=== PATIENT | female | born 1995 | race African-American/Black ===

== ENCOUNTER → 2016-08-11 | Outpatient (CLI) | payer OTHER ==
[2016-03-06 18:19] VITALS: BP 139/72
[~2016-08-11] MED LIST: AMOX1TAB61 PO; IBUP100T PO; OMEP20TA63 PO; OXCA300T PO; QUET50TA8 PO
--- NOTE | 2016-08-11 13:12 | RAD ---
INDICATION: COUGH, RO5 COMPARISON: 08/17/2008 FINDINGS: 2 views of chest obtained. No focal airspace consolidation. Mediastinal contour is unremarkable. No gross osseous destructive lesion. IMPRESSION: No focal airspace consolidation or edema.
== END | disposition home or self-care (01) ==
LOC: RAD 11:13
PROVIDERS: ATTEND Family Medicine
DX: R05 Cough (principal)
CPT/HCPCS: 71020

== ENCOUNTER 2017-11-23 19:57 | Emergency (ER) | payer OTHER ==
[2017-11-23 20:23] LABS: URINE HCG POC HCG NEGATIVE (Negative)
[2017-11-23] MEDS: diphenhydrAMINE 50 MG/ML VIAL IVP (21:06)
[2017-11-23] MEDS: METOCLOPRAMIDE HCL 10 MG/2 ML VIAL. IV (21:07)
[2017-11-23 21:24] LABS: POC GLUCOSE 89 mg/dL (70-99)
== END 2017-11-23 22:06 | disposition home or self-care (01) ==
LOC: ER 19:57
DX: R51 Headache (principal); Z71.1 Person with feared health complaint in whom no diagnosis is made; J45.909 Unspecified asthma, uncomplicated; F90.9 Attention-deficit hyperactivity disorder, unspecified type; F31.9 Bipolar disorder, unspecified
CPT/HCPCS: 81025; 82962; 96374; 96375; 99284-25; J1200; J2765

== ENCOUNTER 2019-01-24 12:55 | Emergency (ER) | payer OTHER ==
[~2019-01-24] VITALS: Ht 154.9 cm; Wt 88.0 kg
[~2019-01-24 12:55] MED LIST changes: -OXCA300T PO; +OXCA300T19 PO; -QUET50TA8 PO; +QUET50TA9 PO
[2019-01-24 13:00] VITALS: BP 140/89
[2019-01-24] MEDS ORDERED: ORPHENADRINE CITRATE 60 MG/2 ML VIAL. IM ONE (13:45)
[2019-01-24] MEDS ORDERED: KETOROLAC 60 MG/2 ML VIAL. IM ONE (13:45)
--- NOTE | 2019-01-24 14:16 | PHYS DOC ---
Past Medical History Past Medical History: Anemia, Anxiety, Asthma, Bipolar, Depression, Other Additional Past Medical Histor: ADHD Past Surgical History: No Surgical History Alcohol Use: None Drug Use: None Adult General Chief Complaint Chief Complaint: OTHER COMPLAINTS [facility] HPI Patient is a 23 year old AA female, accompanied by her mother, with complaints of left upper arm pain without injury, and a headache behind both of her eyes. Patient states she is worried that her blood sugars too high. Patient states that she was seen by her primary care doctor month ago when she was diagnosed with prediabetes. She reports compulsively eating lots of sugar every day. Last night she ate a large piece of sugary cheesecake and now she is worried that her blood sugar is too high. She also complains of a headache behind both of her eyes, mother states that she got a new prescription and her glasses 2 weeks ago. Patient currently rates her pain a 6 out of 10 on the pain scale, there are no alleviating or exacerbating factors. ROS Patient denies any fever, cough, shortness of breath, wheezing, chest pain, diaphoresis, nausea, vomiting, diarrhea, abdominal pain, dysuria, hematuria, incontinence, or rash. Patient denies any decreased range of motion of left upper arm, she states that ROM and palpation does not reproduce the discomfort. Denies any numbness, tingling, or weakness of her extremities. All other ROS is neg unless otherwise noted in HPI. Review of Systems Review of Systems See Above Current Medications Current Medications Current Medications Medications (Trade) Dose Ordered Sig/Jean Start Time Stop Time Status Last Admin Dose Admin Ketorolac Tromethamine (Toradol Im) 30 mg 1X ONCE 01/24/19 13:45 01/24/19 13:48 DC 01/24/19 13:58 30 MG Orphenadrine Citrate (Norflex) 60 mg 1X ONCE 01/24/19 13:45 01/24/19 13:48 DC 01/24/19 14:00 60 MG Allergies Allergies Allergies Coded Allergies Type Severity Reaction Last Updated Verified No Known Drug Allergies 11/30/15 No Physical Exam Physical Exam See Above Constitutional: Well developed, well nourished, no acute distress, non-toxic appearance. [] HENT: Normocephalic, atraumatic, bilateral external ears normal, oropharynx moist, no oral exudates, nose normal. [] Eyes: PERRLA, EOMI, conjunctiva normal, no discharge. [] Neck: Normal range of motion, no tenderness, supple, no stridor. [] Cardiovascular:Heart rate regular rhythm Lungs & Thorax: Bilateral breath sounds clear to auscultation [] Skin: Warm, dry, no erythema, no rash, no bruising [] Extremities: No bony tenderness, no cyanosis, no clubbing, ROM intact, no edema. [] Neurologic: Alert and oriented X 3, normal motor function, normal sensory function, no focal deficits noted. [] Psychologic: Affect normal, judgement normal, mood normal. [] Current Patient Data Vital Signs Vital Signs Date Time Temp Pulse Resp B/P (MAP) Pulse Ox O2 Delivery O2 Flow Rate FiO2 01/24/19 13:00 98.1 80 18 140/89 (106) 99 Room Air 98.1 Lab Values Laboratory Tests Test 01/24/19 13:53 Glucose (Fingerstick) 109 mg/dL (70-99) H EKG EKG [] Radiology/Procedures Radiology/Procedures [] Course & Med Decision Making Course & Med Decision Making Pertinent Labs and Imaging studies reviewed. (See chart for details) dx: feared complaint not present, headache 23-year-old patient presented with an signs of high blood sugar, her blood sugar at bedside was 109. She also reported concerns that the pain in her left upper arm movement that she now had diabetes. Patient also expressed having a headache behind both of her eyes. She was given an IM injection of Toradol orphenadrine for relief of the headache. She was reassured that her blood sugar was not high enough to indicate she is diabetic. She was instructed to follow-up with her primary care doctor for further evaluation of prediabetes. Take Tylenol or ibuprofen as needed for pain. Return to the ER symptoms worsen. Patient verbalized an understanding of home care, medications, follow-up, and return to ED instructions and was in agreement with the plan of care. [] Dragon Disclaimer Dragon Disclaimer This electronic medical record was generated, in whole or in part, using a voice recognition dictation system. Departure Departure Impression: Primary Impression: Headache Additional Impression: Feared complaint without diagnosis Disposition: 01 HOME, SELF-CARE Condition: STABLE Referrals: CHANTALE DELAROSA APRN (PCP) Patient Instructions: Diets for Diabetes, Food Labeling, General Headache Without Cause, [id number] Additional Instructions: You may take Tylenol or ibuprofen as needed for pain. Recommend that you consume foods that have a low glycemic index and limit sugar intake as you have been told you are pre-diabetic by your doctor. Follow-up with your primary care doctor for further diabetes testing. Return to the ER if your symptoms worsen. Problem Qualifiers Primary Impression: Headache Headache type: unspecified Headache chronicity pattern: acute headache Intractability: not intractable Qualified Codes: R51 - Headache KULWINDER HERNANDEZ [employer] Jan 24, 2019 14:16
== END 2019-01-24 14:27 | disposition home or self-care (01) ==
LOC: ER 12:55
DX: R51 Headache (principal); M79.622 Pain in left upper arm; F41.9 Anxiety disorder, unspecified; J45.909 Unspecified asthma, uncomplicated; F31.9 Bipolar disorder, unspecified
CPT/HCPCS: 82962; 96372; 99284; J1885; J2360

== ENCOUNTER → 2020-03-19 | Outpatient (CLI) | payer OTHER ==
--- NOTE | 2020-03-19 15:26 | RAD ---
ABDOMEN COMPLETE History: Epigastric pain for one year Comparison: None. Findings: Multiple sonographic images of the abdomen are submitted. Abdominal aortic caliber is within normal limits up to 1.7 cm proximally. There is no abnormality of the visualized pancreas. There is segmental visualization of the inferior vena cava. Hepatic echogenicity is within normal limits. Right lobe of the liver measured 13.7 cm longitudinal. Gallbladder is present without intraluminal abnormality, wall thickening, or pericholecystic fluid. Right kidney measured 11.3 x 3.9 x 5.6 cm, no hydronephrosis. Spleen measured up to 8.4 cm. The left kidney measured 11.3 x 4.6 x 4.6 cm, no hydronephrosis. Common bile duct is within normal limits about 0.2 cm. Impression: 1. No significant abnormality is demonstrated. Electronically signed by: Duglas Robison MD (03/19/2020 3:23 PM) [id number]
== END | disposition home or self-care (01) ==
LOC: US 14:10
PROVIDERS: ATTEND Family Medicine
DX: R10.13 Epigastric pain (principal)
CPT/HCPCS: 76700

== ENCOUNTER → 2021-02-09 | Outpatient (CLI) | payer MEDICARE, OTHER ==
[~2021-02-09] MED LIST changes: -IBUP100T PO; +IBUP100T68 PO
== END ==
LOC: RT 09:11
PROVIDERS: ATTEND Nurse Practitioner Gerontology
DX: G47.33 Obstructive sleep apnea (adult) (pediatric) (principal); R40.0 Somnolence; R53.83 Other fatigue
CPT/HCPCS: G0399

== ENCOUNTER → 2021-02-10 | Outpatient (CLI) | payer MEDICARE, OTHER ==
--- NOTE | 2021-02-10 12:54 | RAD ---
EXAMINATION: CT ABDOMEN+PELVIS WO CLINICAL HISTORY: Abnormal weight loss TECHNIQUE: Imaging of the abdomen and pelvis was performed without intravenous contrast using standar d technique, scanning from just above the dome of the diaphragm to the symphysis pubis. Unenhanced i maging is limited for the evaluation of some intra-abdominal and pelvic pathology. CT Dose Reduction Employed: One or more of the following individualized dose reduction techniques wer e utilized for this examination: 1. Automated exposure control 2. Adjustment of the mA and/or kV ac cording to patient size 3. Use of iterative reconstruction technique. COMPARISON: None FINDINGS: Minimal left basilar subsegmental atelectasis. Liver, gallbladder, pancreas, spleen, adrenal glands, and kidneys unremarkable. Nondistended urinary bladder suboptimally evaluated. Uterus and ovaries within normal limits for tiffanie ent's age. No dilated bowel. Normal appendix. No abdominal aortic or iliac artery aneurysm. Prominent but nonenlarged 7 mm pericaval lymph node, no nspecific. No evidence of acute osseous abnormality or destructive osseous lesion. IMPRESSION: No evidence of acute abdominopelvic abnormality. Electronically signed by: Juan Pace DO (02/10/2021 12:51 PM) [id number]
== END ==
LOC: CT 14:03
PROVIDERS: ATTEND Nurse Practitioner Gerontology
DX: R63.4 Abnormal weight loss (principal); Z68.25 Body mass index [BMI] 25.0-25.9, adult
CPT/HCPCS: 74176